=== PATIENT | female | born 1950 | race Caucasian/White ===

== ENCOUNTER 2021-09-01 09:51 | Inpatient (IN) | payer BC ==
[~2021-09-01] VITALS: Ht 165.1 cm; Wt 72.9 kg
--- NOTE | 2021-09-01 10:20 | PHYS DOC ---
Past Medical History Past Surgical History: No Surgical History Smoking Status: Former Smoker Alcohol Use: None General Adult EDM: Chief Complaint: CHEST PAIN HPI: HPI: Patient is a 70 year old male who presents with report of chest pain. She reports that she was lying in bed all week last week, not feeling well. She reports that 3 days ago she began experiencing some chest pain, mostly with exertion, but she also reports that it felt worse when she moved her arms. She reports that currently she feels much better, and only has a "twinge" of chest discomfort. She denies any dyspnea. She denies dizziness or diaphoresis. She denies nausea vomiting abdominal pain, lower extremity pain or swelling. Denies syncope or near syncope. She denies cough or hemoptysis. She denies fevers or chills. She denies any previous similar symptoms. She went to her primary care physician office this morning, they performed an EKG, give her 324 mg of oral aspirin, and told her to come to the ER. She denies any history of known coronary disease, no previous history of chest pain symptoms. Then cardiology nurse practitioner took the liberty of seeing the patient in the ER before I was able to see her. He reportedly staffed patient with his attending, Dr. Valiente. Review of Systems: Review of Systems: Constitutional: Denies fever or chills. [] HENT: Denies nasal congestion or sore throat. [] Respiratory: Denies cough or shortness of breath. [] Cardiovascular: Chest pain. Denies syncope, denies peripheral edema Musculoskeletal: Denies back pain or joint pain. [] Integument: Denies rash. [] Neurologic: Denies headache, focal weakness or sensory changes. Denies dizziness or syncope. Psychiatric: Denies depression or anxiety. [] Heart Score: C/O Chest Pain: Yes HEART Score for Chest Pain: HEART Score for Chest Pain Response (Comments) Value History Moderately Suspicious 1 ECG Nonspecific Repolarizatio 1 Age > 65 2 Risk Factors 1 or 2 Risk Factors 1 Troponin >3 x Normal Limit 2 Total 7 Risk Factors: Risk Factors: DM, Current or recent (<one month) smoker, HTN, HLP, family history of CAD, obesity. Risk Scores: Score 0 - 3: 2.5% MACE over next 6 weeks - Discharge Home Score 4 - 6: 20.3% MACE over next 6 weeks - Admit for Clinical Observation Score 7 - 10: 72.7% MACE over next 6 weeks - Early Invasive Strategies Allergies: Allergies: Allergies Coded Allergies Type Severity Reaction Last Updated Verified gabapentin Allergy Intermediate 09/01/21 Yes Physical Exam: PE: Constitutional: Well developed, well nourished, no acute distress, non-toxic appearance. [] HENT: Normocephalic, atraumatic Eyes: Conjunctive are clear, sclera anicteric Neck: Achy midline, no JVD, no meningism Cardiovascular:Heart rate regular rhythm, was 2 radial and +2 posterior tibial pulses bilateral Lungs & Thorax: Lungs are clear to auscultation without rales, rhonchi, wheezes, stridor, no evidence of distress, no tachypnea, no retractions, no cyanosis Abdomen: Abdomen is soft, nondistended, nontender to palpation. No palpable mass organomegaly Skin: Warm, dry, no erythema, no rash. [] Back: No tenderness, full range of motion Extremities: No tenderness, no cyanosis, no clubbing, ROM intact, no edema. No calf tenderness. Neurologic: Alert and oriented X 3, normal motor function, normal sensory function, no focal deficits noted. [] Psychologic: She is somewhat anxious, she is cooperative Current Patient Data: Vital Signs: Vital Signs Date Time Temp Pulse Resp B/P (MAP) Pulse Ox O2 Delivery O2 Flow Rate FiO2 09/01/21 10:01 97.9 75 15 138/85 (102) 96 Room Air 97.9 EKG: EKG: EKG is interpreted at 1000 Rhythm is sinus Rate is 84 bpm Bude is left Q waves V1, V2 No STEMI Radiology/Procedures: Radiology/Procedures: IMAGING REPORT Signed PATIENT: KITTY HANYE ACCOUNT: [id number] : 1950 LOCATION: ER AGE: 70 SEX: F EXAM STATUS: PRE ER ORD. PHYSICIAN: GALINA JANE DO REASON: chest pain PROCEDURE: PORTABLE CHEST 1V XR CHEST 1V History: Chest pain Comparison: None. Technique: AP radiograph of the chest. Findings: The lungs are adequately and symmetrically inflated. No airspace consolidation, pleural effusion or pneumothorax. The cardiomediastinal silhouette and pulmonary vasculature are within normal limits. Atherosclerotic calcifications of the aorta. Degenerative changes of the left greater than right shoulders. Impression: 1. No acute cardiopulmonary process. Electronically signed by: Jayant Gonzalez MD (09/01/2021 10:44 AM) [id number] DICTATED and SIGNED BY: JAYANT GONZALEZ MD DATE: 09/01/21 [id number] 0 Course & Med Decision Making: Course & Med Decision Making Pertinent Labs and Imaging studies reviewed. (See chart for details) Patient had already been given 324 mg of aspirin at her primary care physician's office. She reported only a "twinge" of chest pain. She was given 1 sublingual nitroglycerin. IV heparin drip ordered. She reported no pain at all thereafter. Vital signs are very stable. She is resting comfortably, manifest no evidence of distress. Initial troponin is 10,000. BNP is markedly elevated. No pulmonary edema on chest x-ray. She denies dyspnea, there is no evidence of respiratory distress or hypoxia. CT angio of the chest does not reveal any pulmonary embolus or other acute chest pathology. The patient will proceed to the cardiac [facility] this afternoon with Dr. Valiente. I have discussed all of the findings, differential diagnosis and plan of care with the patient. I explained the recommendation for hospitalization, she is comfortable with this plan. She is excepted for admission by Dr. Ac. Georgie Disclaimer: Georgie Disclaimer: This electronic medical record was generated, in whole or in part, using a voice recognition dictation system. Departure Departure Impression: Primary Impression: NSTEMI (non-ST elevated myocardial infarction) Disposition: ADMITTED INPATIENT Admitting Physician: PAT (Dr. Ac) Condition: GUARDED LUCINDA,GALINA Melvin DO Sep 01, 2021 10:20
[2021-09-01 10:43] LABS: BASO # 0.1 x10^3/uL (0.0-0.2); BASO % 0 % (0-3); EOS % 0 % (0-3); HEMATOCRIT 39.6 % (36.0-47.0); HEMOGLOBIN 13.3 g/dL (12.0-15.5); LYMPH # 1.8 x10^3/uL (1.0-4.8); LYMPH % 12 % (24-48); MEAN CORPUSCULAR HEMOGLOBIN 30 pg (25-35); MEAN CORPUSCULAR HGB CONC 34 g/dL (31-37); MEAN CORPUSCULAR VOLUME 88 fL (79-100); MONO # 1.2 x10^3/uL (0.0-1.1); MONO % 8 % (0-9); NEUT # 11.9 x10^3/uL (1.8-7.7); NEUT % 80 % (31-73); PLATELET COUNT 323 x10^3/uL (140-400); RED BLOOD COUNT 4.49 x10^6/uL (3.50-5.40); RED CELL DISTRIBUTION WIDTH 14.5 % (11.5-14.5); WHITE BLOOD COUNT 14.9 x10^3/uL (4.0-11.0)
--- NOTE | 2021-09-01 10:47 | RAD ---
XR CHEST 1V History: Chest pain Comparison: None. Technique: AP radiograph of the chest. Findings: The lungs are adequately and symmetrically inflated. No airspace consolidation, pleural effusion or p neumothorax. The cardiomediastinal silhouette and pulmonary vasculature are within normal limits. Ath erosclerotic calcifications of the aorta. Degenerative changes of the left greater than right shoulde rs. Impression: 1. No acute cardiopulmonary process. Electronically signed by: Jayant Palmer MD (09/01/2021 10:44 AM) [id number]
[2021-09-01] MEDS ORDERED: NITROGLYCERIN SUBLINGUAL 0.4 MG BOTTLE OF 25. SL PRN ×2 (11:00→14:30)
[2021-09-01 11:06] LABS: CALCIUM 8.7 mg/dL (8.5-10.1); CREATININE 1.3 mg/dL (0.6-1.0); GFR 40.5; POTASSIUM 3.5 mmol/L (3.5-5.1)
[2021-09-01 11:09] LABS: ALBUMIN 3.6 g/dL (3.4-5.0); ALBUMIN/GLOBULIN RATIO 0.9 (1.0-1.7); MAGNESIUM 2.2 mg/dL (1.8-2.4); TOTAL BILIRUBIN 0.5 mg/dL (0.2-1.0); TOTAL PROTEIN 7.8 g/dL (6.4-8.2)
[2021-09-01] MEDS ORDERED: IOHEXOL 350 MG/ML 100 ML VIAL. IV ONE (12:00)
[2021-09-01] MEDS ORDERED: CONTRAST GIVEN. MC PRN (12:15)
--- NOTE | 2021-09-01 12:29 | PDOC2 ---
[facility] AGU[facility] HOME CARE PHYSICAL THERAPIST 09/01/21 1229: CARDIAC CONSULT DATE OF CONSULT Date of Consult DATE: 09/01/21 TIME: 12:06 REASON FOR CONSULT Reason for Consult: Chest pain REFERRING PHYSICIAN Referring Physician: Ivett SOURCE Source: Chart review, Patient HISTORY OF PRESENT ILLNESS HISTORY OF PRESENT ILLNESS Anabelis a pleasant 70 yo female admitted for complains of chest pain. This started about 2 days ago and has been nagging her. Described it as sharp pain midchest and her arms hurts all the time blaming it on arthritis. Has had nausea in the last day but no vomiting. No diarrhea, fever or chills. She had covid19 vaccine x1 last year but did not complete her vaccine due to possible reaction a=on her first dose. No viral symptoms. PAST MEDICAL HISTORY Cardiovascular: HTN Pulmonary: No pertinent hx CENTRAL NERVOUS SYSTEM: Other (No petinent history) GI: No pertinent hx Heme/Onc: No pertinent hx Hepatobiliary: No pertinent hx Psych: No pertinent hx Musculoskeletal: Osteoarthritis Rheumatologic: No pertinent hx Infectious disease: Bacterial vaginosis ENT: No pertinent hx Renal/: Other (interstitial cystitis) Endocrine: No pertinent hx Dermatology: No pertinent hx PAST SURGICAL HISTORY Past Surgical History: No pertinent history FAMILY HISTORY Family History: Heart Disease SOCIAL HISTORY Smoke: Quit (remotely) ALCOHOL: none Drugs: None Lives: with Family ALLERGIES ALLERGIES: Coded Allergies: gabapentin (Verified Allergy, Intermediate, 09/01/21) ROS Review of System 14 point ROS evaluated with pertinent positives noted per HPI PHYSICAL EXAM General: Alert, Oriented X3, Cooperative, No acute distress HEENT: Atraumatic, Mucous membr. moist/pink Lungs: Clear to auscultation, Normal air movement Heart: Regular rate, Normal S1, Normal S2, No murmurs Abdomen: Soft, No tenderness Extremities: No cyanosis, No edema Skin: No breakdown Neuro: Normal speech, Sensation intact Psych/Mental Status: Mental status NL, Mood NL MUSCULOSKELETAL: Osteoarthritic changes both hands VITALS/I&O VITALS/I&O: Vital Signs Date Time Temp Pulse Resp B/P (MAP) Pulse Ox O2 Delivery O2 Flow Rate FiO2 09/01/21 10:01 97.9 75 15 138/85 (102) 96 Room Air 97.9 LABS Lab: Laboratory Tests Test 09/01/21 10:20 White Blood Count 14.9 x10^3/uL (4.0-11.0) H Red Blood Count 4.49 x10^6/uL (3.50-5.40) Hemoglobin 13.3 g/dL (12.0-15.5) Hematocrit 39.6 % (36.0-47.0) Mean Corpuscular Volume 88 fL (79-100) Mean Corpuscular Hemoglobin 30 pg (25-35) Mean Corpuscular Hemoglobin Concent 34 g/dL (31-37) Red Cell Distribution Width 14.5 % (11.5-14.5) Platelet Count 323 x10^3/uL (140-400) Neutrophils (%) (Auto) 80 % (31-73) H Lymphocytes (%) (Auto) 12 % (24-48) L Monocytes (%) (Auto) 8 % (0-9) Eosinophils (%) (Auto) 0 % (0-3) Basophils (%) (Auto) 0 % (0-3) Neutrophils # (Auto) 11.9 x10^3/uL (1.8-7.7) H Lymphocytes # (Auto) 1.8 x10^3/uL (1.0-4.8) Monocytes # (Auto) 1.2 x10^3/uL (0.0-1.1) H Eosinophils # (Auto) 0.0 x10^3/uL (0.0-0.7) Basophils # (Auto) 0.1 x10^3/uL (0.0-0.2) Sodium Level 125 mmol/L (136-145) L Potassium Level 3.5 mmol/L (3.5-5.1) Chloride Level 90 mmol/L (98-107) L Carbon Dioxide Level 23 mmol/L (21-32) Anion Gap 12 (6-14) Blood Urea Nitrogen 26 mg/dL (7-20) H Creatinine 1.3 mg/dL (0.6-1.0) H Estimated GFR (Cockcroft-Gault) 40.5 BUN/Creatinine Ratio 20 (6-20) Glucose Level 128 mg/dL (70-99) H Calcium Level 8.7 mg/dL (8.5-10.1) Magnesium Level 2.2 mg/dL (1.8-2.4) Total Bilirubin 0.5 mg/dL (0.2-1.0) Aspartate Amino Transferase (AST) 127 U/L (15-37) H Alanine Aminotransferase (ALT) 36 U/L (14-59) Alkaline Phosphatase 106 U/L (46-116) Troponin I High Sensitivity 17958 ng/L (4-50) H [id number]-I-Type Natriuretic Peptide 48286 pg/mL (0-124) H Total Protein 7.8 g/dL (6.4-8.2) Albumin 3.6 g/dL (3.4-5.0) Albumin/Globulin Ratio 0.9 (1.0-1.7) L Lipase 53 U/L (73-393) L Laboratory Tests 09/01/21 10:20 Laboratory Tests 09/01/21 10:20 ASSESSMENT/PLAN ASSESSMENT/PLAN 1. NSTEMI 2. HTN: controlled 3. Mild NATALIE with hyponatremia Recommendations 1. C with possible PCI 2. ASA, heparin drip 3. FLP, TTE CHARITO BURLESON MD 09/01/21 2141: CARDIAC CONSULT ASSESSMENT/PLAN ASSESSMENT/PLAN Patient seen and examined. Agree with HYBRID CAR MECHANIC's assessment and plan. Agree with cardiac cath and possible PCI for NSTEMI Continue heparin infusion per protocol Check 2D echo to assess LVF Thank you for your consultation ALVIN AGUILAR APRN Sep 01, 2021 12:29 CHARITO BURLESON MD Sep 01, 2021 21:41
[2021-09-01] MEDS ORDERED: HEPARIN 25,000UTS/250ML PREMIX 250 ML IV PRN ×2 (12:30→17:15)
[2021-09-01] MEDS ORDERED: IV NORMAL SALINE 1000ML BAG 1,000 ML IV ONE ×2 (12:30→13:30)
[2021-09-01] MEDS ORDERED: ASPIRIN ENTERIC COATED 325 MG TABLET.DR. PO ONE (12:30)
[2021-09-01] MEDS ORDERED: HEPARIN for IV BOLUS 10,000 UNIT/10 ML VIAL. IV PRN (12:30)
--- NOTE | 2021-09-01 12:59 | RAD ---
CTA CHEST History: Chest pain, elevated BNP and troponin. Rule out PE. Comparison: None. Technique: CTA of the pulmonary arteries with intravenous contrast. 3-D postprocessing was performed. Findings: Pulmonary arteries: No pulmonary embolism Aorta and great vessels: No aneurysm or dissection of the aortic arch or thoracic aorta. Thyroid: No significant abnormalities. Mediastinum and ed: No mediastinal masses or adenopathy is seen. Esophagus: The visualized esophagus is normal. Heart: The heart is normal in size. There is no pericardial effusion. Heavy coronary artery calcifica tion. Airways, Lungs, Pleura: Clear airways. No focal consolidation. Mild dependent changes in the lungs. Upper abdomen: Limited evaluation of the upper abdomen is unremarkable. Osseous structures and soft tissues: Degenerative changes of the bilateral shoulders. Mild degenerati ve changes in the thoracic spine. Impression: 1. No pulmonary embolism. ------ Exposure: One or more of the following individualized dose reduction techniques were utilized for thi s examination: 1. Automated exposure control 2. Adjustment of the mA and/or kV according to patient size 3. Use of iterative reconstruction technique. Electronically signed by: Jayant Palmer MD (09/01/2021 12:56 PM) [id number]
[2021-09-01 13:56] LABS: BILIRUBIN,URINE NEGATIVE (NEG); CLARITY,URINE CLEAR; COLOR,URINE STRAW; PROTEIN,URINE NEGATIVE (NEG-TRACE)
[2021-09-01 13:57] LABS: NITRITE,URINE NEGATIVE (NEG); UROBILINOGEN,URINE 0.2 mg/dL (0.2 mg/dL)
[2021-09-01 14:00] LABS: BACTERIA,URINE 0 /HPF (0-FEW); RBC,URINE 0 /HPF (0-2)
[2021-09-01] MEDS ORDERED: LIDOCAINE 1% PF 2 ML VIAL. ONE (14:26)
[2021-09-01] MEDS ORDERED: IODIXANOL 320 MG/ML 100 ML VIAL. ONE (14:26)
[2021-09-01] MEDS ORDERED: IV NORMAL SALINE 1000ML BAG 1,000 ML IV SCH (14:30)
[2021-09-01] MEDS ORDERED: ONDANSETRON PF 4 MG/2 ML VIAL. IVP PRN ×2 (14:30→15:15)
[2021-09-01] MEDS ORDERED: fentaNYL PF VIAL 100 MCG/2 ML VIAL ONE ×2 (15:11→15:49)
[2021-09-01] MEDS ORDERED: HEPARIN for IV BOLUS 10,000 UNIT/10 ML VIAL. ONE (15:12)
[2021-09-01] MEDS ORDERED: VERAPAMIL 5 MG/2 ML VIAL. ONE (15:12)
[2021-09-01] MEDS ORDERED: MIDAZOLAM HCL/PF 2 MG/2 ML VIAL. ONE ×2 (15:12→15:49)
[2021-09-01] MEDS ORDERED: NITROGLYCERIN 200 MCG/2 ML SYRINGE FOR CATH/VASC LAB. ONE (15:12)
--- NOTE | 2021-09-01 15:12 | PDOC1 ---
History and Physical Date of Service: DOS: DATE: 09/01/21 TIME: 15:08 Chief Complaint: Chief Complain: Chest pain History of Present Illness: HPI: History obtained from discussion with the ED physician and chart review: 70-year-old female presenting with atypical chest pain for the past 3 days. Patient describes sharp pain in the mid chest region and attributes to this to some of her arthritis. Endorses nausea without vomiting. Denies shortness of breath, palpitations, syncope, abdominal pain, diarrhea, blurry vision or loss of vision. In the ED, EKG showed to have septal T wave inversions and troponin was as high as 10,000. Past Medical/Surgical History: PMH/PSH: Past medical history of hypertension, osteoarthritis, bacterial vaginosis No past surgical history Allergies: Allergies: Coded Allergies: gabapentin (Verified Allergy, Intermediate, 09/01/21) Family History: Family History: Reviewed with relative history of heart disease Social History: Social History: Former smoker, denies any alcohol or drug abuse Current Medications: Current Medications Current Medications Nitroglycerin (Nitrostat) 0.4 mg PRN Q5MIN PRN SL CHEST PAIN Last administered on 09/01/21at 13:06; Start 09/01/21 at 11:00 Iohexol (Omnipaque 350 Mg/ml) 85 ml 1X ONCE IV Last administered on 09/01/21at 12:00; Start 09/01/21 at 12:00; Stop 09/01/21 at 12:01; Status DC Info (CONTRAST GIVEN -- Rx MONITORING) 1 each PRN DAILY PRN MC SEE COMMENTS; Start 09/01/21 at 12:15; Stop 09/03/21 at 12:14 Heparin Sodium/ Dextrose 250 ml @ 8.748 mls/ hr CONT PRN IV PER PROTOCOL Last administered on 09/01/21at 13:02; Start 09/01/21 at 12:30 Heparin Sodium (Porcine) (Heparin Sodium) 1,800 unit PRN Q6HRS PRN IV FOR UFH LEVEL LESS THAN 0.2 Last administered on 09/01/21at 13:03; Start 09/01/21 at 12:30 Sodium Chloride 1,000 ml @ 100 mls/hr 1X ONCE IV Last administered on 09/01/21at 12:30; Start 09/01/21 at 12:30; Stop 09/01/21 at 22:29 Aspirin (Ecotrin) 325 mg 1X ONCE PO ; Start 09/01/21 at 12:30; Stop 09/01/21 at 12:31; Status DC Aspirin (Ecotrin) 81 mg [id number] PO ; Start 09/02/21 at 08:00 Sodium Chloride 1,000 ml @ 75 mls/hr 1X ONCE IV ; Start 09/01/21 at 13:30; Stop 09/02/21 at 02:49 Ondansetron HCl (Zofran) 4 mg PRN Q8HRS PRN IVP NAUSEA/VOMITING; Start 09/01/21 at 14:30; Stop 09/02/21 at 14:29 Nitroglycerin (Nitrostat) 0.4 mg PRN Q5MIN PRN SL CHEST PAIN; Start 09/01/21 at 14:30 Sodium Chloride 1,000 ml @ 75 mls/hr [id number] IV ; Start 09/01/21 at 14:30 Iodixanol (Visipaque 320) 100 ml STK-MED ONCE .ROUTE ; Start 09/01/21 at 14:26; Stop 09/01/21 at 14:27; Status DC Lidocaine HCl (Xylocaine-Mpf 1% 2ml Vial) 2 ml STK-MED ONCE .ROUTE ; Start 09/01/21 at 14:26; Stop 09/01/21 at 14:27; Status DC Heparin Sodium/ Sodium Chloride 1,000 ml @ As Directed STK-MED ONCE .ROUTE ; Start 09/01/21 at 14:27; Stop 09/01/21 at 14:27; Status DC ROS: Review of Systems Review of System REVIEW OF SYSTEMS: GENERAL: Denies weakness SKIN: No bruising, hair changes or rashes. EYES: No blurred, double or loss of vision. NOSE AND THROAT: No history of nosebleeds, hoarseness or sore throat. HEART: Positive for chest pain LUNGS: Denies cough, hemoptysis, wheezing or shortness of breath. GASTROINTESTINAL: Denies changes in appetite, nausea, vomiting, diarrhea or constipation. GENITOURINARY: No history of frequency, urgency, hesitancy or nocturia. NEUROLOGIC: Denies history of numbness, tingling, or tremor. PSYCHIATRIC: No history of panic, anxiety or depression. ENDOCRINE: No history of heat or cold intolerance, polyuria or polydipsia. EXTREMITIES: Denies joint pain, pain on walking or stiffness. Physical Exam: Vital Signs: Vital Signs Date Time Temp Pulse Resp B/P (MAP) Pulse Ox O2 Delivery O2 Flow Rate FiO2 09/01/21 13:06 85 150/90 09/01/21 12:28 17 99 Room Air 09/01/21 10:01 97.9 97.9 Physcial Exam: General: Well developed, well nourished, no acute distress, well appearing HEENT: Pupils equally round and reactive to light, EOMI, no discharge, normal conjunctiva Neck: Supple, no nuchal rigidity, no JVD, trachea midline, no tenderness Cardiac: RRR, no murmurs, no gallops, no rubs Chest/Lungs: CTAB, no wheeze, no rhonchi, no crackles Abdomen: soft, non-distended, no guarding, no peritoneal signs, non-tender Back: No tenderness Extremities: no edema, pulses intact, non-tender,capillary refill <3 sec bilateral upper and lower extremities, Neuro: Alert and oriented x 4, no focal deficits, normal speech Labs: Labs: Laboratory Tests Test 09/01/21 10:20 09/01/21 13:25 09/01/21 13:45 White Blood Count 14.9 x10^3/uL (4.0-11.0) Red Blood Count 4.49 x10^6/uL (3.50-5.40) Hemoglobin 13.3 g/dL (12.0-15.5) Hematocrit 39.6 % (36.0-47.0) Mean Corpuscular Volume 88 fL (79-100) Mean Corpuscular Hemoglobin 30 pg (25-35) Mean Corpuscular Hemoglobin Concent 34 g/dL (31-37) Red Cell Distribution Width 14.5 % (11.5-14.5) Platelet Count 323 x10^3/uL (140-400) Neutrophils (%) (Auto) 80 % (31-73) Lymphocytes (%) (Auto) 12 % (24-48) Monocytes (%) (Auto) 8 % (0-9) Eosinophils (%) (Auto) 0 % (0-3) Basophils (%) (Auto) 0 % (0-3) Neutrophils # (Auto) 11.9 x10^3/uL (1.8-7.7) Lymphocytes # (Auto) 1.8 x10^3/uL (1.0-4.8) Monocytes # (Auto) 1.2 x10^3/uL (0.0-1.1) Eosinophils # (Auto) 0.0 x10^3/uL (0.0-0.7) Basophils # (Auto) 0.1 x10^3/uL (0.0-0.2) Sodium Level 125 mmol/L (136-145) Potassium Level 3.5 mmol/L (3.5-5.1) Chloride Level 90 mmol/L (98-107) Carbon Dioxide Level 23 mmol/L (21-32) Anion Gap 12 (6-14) Blood Urea Nitrogen 26 mg/dL (7-20) Creatinine 1.3 mg/dL (0.6-1.0) Estimated GFR (Cockcroft-Gault) 40.5 BUN/Creatinine Ratio 20 (6-20) Glucose Level 128 mg/dL (70-99) Calcium Level 8.7 mg/dL (8.5-10.1) Magnesium Level 2.2 mg/dL (1.8-2.4) Total Bilirubin 0.5 mg/dL (0.2-1.0) Aspartate Amino Transf (AST/SGOT) 127 U/L (15-37) Alanine Aminotransferase (ALT/SGPT) 36 U/L (14-59) Alkaline Phosphatase 106 U/L (46-116) Troponin I High Sensitivity 69139 ng/L (4-50) 84596 ng/L (4-50) GG-Okb-R-Type Natriuretic Peptide 45679 pg/mL (0-124) Total Protein 7.8 g/dL (6.4-8.2) Albumin 3.6 g/dL (3.4-5.0) Albumin/Globulin Ratio 0.9 (1.0-1.7) Lipase 53 U/L (73-393) SARS-CoV-2 Antigen (Rapid) Negative (NEGATIVE) Urine Collection Type Unknown Urine Color Straw Urine Clarity Clear Urine pH 7.0 (<5.0-8.0) Urine Specific [place] 1.010 (1.000-1.030) Urine Protein Negative mg/dL (NEG-TRACE) Urine Glucose (UA) Negative mg/dL (NEG) Urine Ketones (Stick) Negative mg/dL (NEG) Urine Blood Trace (NEG) Urine Nitrite Negative (NEG) Urine Bilirubin Negative (NEG) Urine Urobilinogen Dipstick 0.2 mg/dL (0.2 mg/dL) Urine Leukocyte Esterase Negative (NEG) Urine RBC 0 /HPF (0-2) Urine WBC 1-4 /HPF (0-4) Urine Squamous Epithelial Cells Occ /LPF Urine Bacteria 0 /HPF (0-FEW) Laboratory Tests Test 09/01/21 10:20 09/01/21 13:25 09/01/21 13:45 White Blood Count 14.9 x10^3/uL (4.0-11.0) Red Blood Count 4.49 x10^6/uL (3.50-5.40) Hemoglobin 13.3 g/dL (12.0-15.5) Hematocrit 39.6 % (36.0-47.0) Mean Corpuscular Volume 88 fL (79-100) Mean Corpuscular Hemoglobin 30 pg (25-35) Mean Corpuscular Hemoglobin Concent 34 g/dL (31-37) Red Cell Distribution Width 14.5 % (11.5-14.5) Platelet Count 323 x10^3/uL (140-400) Neutrophils (%) (Auto) 80 % (31-73) Lymphocytes (%) (Auto) 12 % (24-48) Monocytes (%) (Auto) 8 % (0-9) Eosinophils (%) (Auto) 0 % (0-3) Basophils (%) (Auto) 0 % (0-3) Neutrophils # (Auto) 11.9 x10^3/uL (1.8-7.7) Lymphocytes # (Auto) 1.8 x10^3/uL (1.0-4.8) Monocytes # (Auto) 1.2 x10^3/uL (0.0-1.1) Eosinophils # (Auto) 0.0 x10^3/uL (0.0-0.7) Basophils # (Auto) 0.1 x10^3/uL (0.0-0.2) Sodium Level 125 mmol/L (136-145) Potassium Level 3.5 mmol/L (3.5-5.1) Chloride Level 90 mmol/L (98-107) Carbon Dioxide Level 23 mmol/L (21-32) Anion Gap 12 (6-14) Blood Urea Nitrogen 26 mg/dL (7-20) Creatinine 1.3 mg/dL (0.6-1.0) Estimated GFR (Cockcroft-Gault) 40.5 BUN/Creatinine Ratio 20 (6-20) Glucose Level 128 mg/dL (70-99) Calcium Level 8.7 mg/dL (8.5-10.1) Magnesium Level 2.2 mg/dL (1.8-2.4) Total Bilirubin 0.5 mg/dL (0.2-1.0) Aspartate Amino Transf (AST/SGOT) 127 U/L (15-37) Alanine Aminotransferase (ALT/SGPT) 36 U/L (14-59) Alkaline Phosphatase 106 U/L (46-116) Troponin I High Sensitivity 79940 ng/L (4-50) 37200 ng/L (4-50) JO-Tlf-Y-Type Natriuretic Peptide 75602 pg/mL (0-124) Total Protein 7.8 g/dL (6.4-8.2) Albumin 3.6 g/dL (3.4-5.0) Albumin/Globulin Ratio 0.9 (1.0-1.7) Lipase 53 U/L (73-393) SARS-CoV-2 Antigen (Rapid) Negative (NEGATIVE) Urine Collection Type Unknown Urine Color Straw Urine Clarity Clear Urine pH 7.0 (<5.0-8.0) Urine Specific [place] 1.010 (1.000-1.030) Urine Protein Negative mg/dL (NEG-TRACE) Urine Glucose (UA) Negative mg/dL (NEG) Urine Ketones (Stick) Negative mg/dL (NEG) Urine Blood Trace (NEG) Urine Nitrite Negative (NEG) Urine Bilirubin Negative (NEG) Urine Urobilinogen Dipstick 0.2 mg/dL (0.2 mg/dL) Urine Leukocyte Esterase Negative (NEG) Urine RBC 0 /HPF (0-2) Urine WBC 1-4 /HPF (0-4) Urine Squamous Epithelial Cells Occ /LPF Urine Bacteria 0 /HPF (0-FEW) Images: Images PROCEDURE: PORTABLE CHEST 1V XR CHEST 1V History: Chest pain Comparison: None. Technique: AP radiograph of the chest. Findings: The lungs are adequately and symmetrically inflated. No airspace consolidation, pleural effusion or pneumothorax. The cardiomediastinal silhouette and pulmonary vasculature are within normal limits. Atherosclerotic calcifications of the aorta. Degenerative changes of the left greater than right shoulders. Impression: 1. No acute cardiopulmonary process. PROCEDURE: CT ANGIOGRAPHY CHEST CTA CHEST History: Chest pain, elevated BNP and troponin. Rule out PE. Comparison: None. Technique: CTA of the pulmonary arteries with intravenous contrast. 3-D postprocessing was performed. Findings: Pulmonary arteries: No pulmonary embolism Aorta and great vessels: No aneurysm or dissection of the aortic arch or thoracic aorta. Thyroid: No significant abnormalities. Mediastinum and ed: No mediastinal masses or adenopathy is seen. Esophagus: The visualized esophagus is normal. Heart: The heart is normal in size. There is no pericardial effusion. Heavy c oronary artery calcification. Airways, Lungs, Pleura: Clear airways. No focal consolidation. Mild dependent changes in the lungs. Upper abdomen: Limited evaluation of the upper abdomen is unremarkable. Osseous structures and soft tissues: Degenerative changes of the bilateral shoulders. Mild degenerative changes in the thoracic spine. Impression: 1. No pulmonary embolism. Assessment/Plan Assessment/Plan Acute chest pain, rule out ACS Concern for non-STEMI Elevated BNP suggestive of volume overload Acute electrolyte derangementhyponatremia, hypochloremia suggestive of volume depletion NATALIE due to vasomotor nephropathy History of hypertension Admit to hospitalist service for further management EKG showing septal T wave inversions Troponin at 10,000 and 14,000 rising Continue aspirin, consider Plavix if intermediate risk will defer this to cardiology Cardiology consulted for left heart cath today Continue nitroglycerin as needed for pain Continue beta-eduarda if blood pressures allow Continue high intensity statins IV morphine as needed Start Heparin gtt Maintain O2 sats between 88 to 95% Trend troponins Repeat EKG in the a.m. Continue telemetry monitoring Monitor for electrolyte abnormalities Avoid NSAIDs In addition to my E/M visit, advance care planning done with A total time of 20 minutes was spent from 330 to 350 face to face in discussion regarding the patient's goals of care, CODE STATUS. Justifications for Admission Other Justification DARIUSZ BEAN MD Sep 01, 2021 15:12
[2021-09-01] MEDS ORDERED: PROCHLORPERAZINE 10 MG/2 ML VIAL. IV PRN (15:15)
[2021-09-01] MEDS ORDERED: ZOLPIDEM 5 MG TABLET. PO PRN (15:15)
[2021-09-01] MEDS ORDERED: diphenhydrAMINE 50 MG/ML VIAL IVP PRN (15:15)
[2021-09-01] MEDS ORDERED: DOCUSATE SODIUM 100 MG CAPSULE. PO PRN (15:15)
[2021-09-01] MEDS ORDERED: LORazepam 0.5 MG TABLET PO PRN (15:15)
[2021-09-01] MEDS ORDERED: MORPHINE SULFATE 2 MG/ML INJ. IV PRN (15:15)
[2021-09-01] MEDS ORDERED: DEXTROSE 50% 25 GM / 50ML DISP.SYRIN. IV PRN (15:15)
[2021-09-01] MEDS ORDERED: ACETAMINOPHEN 325 MG TABLET. PO PRN (15:15)
[2021-09-01] MEDS ORDERED: SENNOSIDES 8.6 MG TABLET PO PRN (15:15)
[2021-09-01] MEDS ORDERED: MORPHINE SULFATE 2 MG/ML INJ. IVP PRN (15:15)
[2021-09-01] MEDS ORDERED: diphenhydrAMINE HCL 25 MG CAPSULE PO PRN ×2 (15:15)
[2021-09-01] MEDS ORDERED: oxyCODONE/APAP 5/325 1 TAB TABLET PO PRN (15:15)
[2021-09-01] MEDS ORDERED: LIDOCAINE 1% Multi-Dose 20 ML VIAL. ONE (16:04)
[2021-09-01 16:28] VITALS: BP 101/65
[2021-09-01 17:00] VITALS: BP 91/39
--- NOTE | 2021-09-01 17:08 | NUR ---
Patient transferred from Regional Office Coordinator to ICU. IABP placed in R groin, TR band w/ 11ml air on R wrist. No bleeding at time of transfer. Dopamine gtt at 20 mcg/kg/min, Heparin at 12 U/kg/hr, NS bolus infusing. Order received to start Levophed gtt if Aug pressure <90. Report given to Axel KNOWLES in ICU. Patient's at bedside. Patient awaiting transfer to [facility] for CABG.
[2021-09-01 17:12] VITALS: BP 96/54
[2021-09-01] MEDS ORDERED: NITROGLYCERIN 200 MCG/2 ML SYRINGE FOR CATH/VASC LAB. IART ONE (17:15)
[2021-09-01] MEDS ORDERED: HEPARIN for IV BOLUS 10,000 UNIT/10 ML VIAL. IART ONE (17:15)
[2021-09-01] MEDS ORDERED: IODIXANOL 320 MG/ML 100 ML VIAL. IART ONE (17:15)
[2021-09-01] MEDS ORDERED: MIDAZOLAM HCL/PF 2 MG/2 ML VIAL. IV ONE (17:15)
[2021-09-01] MEDS ORDERED: LIDOCAINE 1% PF 2 ML VIAL. INJ ONE (17:15)
[2021-09-01] MEDS ORDERED: fentaNYL PF VIAL 100 MCG/2 ML VIAL IV ONE (17:15)
[2021-09-01] MEDS ORDERED: LIDOCAINE 1% Multi-Dose 20 ML VIAL. INJ ONE (17:15)
[2021-09-01] MEDS ORDERED: NOREPINEPHRINE VIAL 8 MG in IV DEXTROSE 5% 250 ML IV PRN (17:15)
[2021-09-01] MEDS ORDERED: VERAPAMIL 5 MG/2 ML VIAL. IART ONE (17:15)
[2021-09-01] MEDS ORDERED: EPINEPHrine 1 MG/ML VIAL ONE (17:29)
[2021-09-01] MEDS ORDERED: POLYVINYL ALCOHOL 1.4% OPHTH SOLUTION 15ML BOTTLE. OU PRN (18:00)
[2021-09-01] MEDS ORDERED: EPINEPHrine VIAL 5 MG in IV NORMAL SALINE 250ML 250 ML IV PRN (18:00)
[2021-09-01] MEDS ORDERED: IV NORMAL SALINE 500ML BAG 500 ML IV PRN (18:00)
[2021-09-01] MEDS ORDERED: EPINEPHrine 1 MG/ML VIAL INJ ONE (18:00)
[2021-09-01] MEDS ORDERED: MIDAZOLAM 100mg/100ml NS BAG 100 ML IV PRN (18:00)
[2021-09-01] MEDS ORDERED: ATROPINE 0.5 MG/5 ML DISP.SYRINGE. IV PRN (18:00)
[2021-09-01] MEDS ORDERED: DEXMEDETOMIDINE 400 MCG in IV NORMAL SALINE 100ML 96 ML IV PRN (18:00)
[2021-09-01] MEDS ORDERED: PROPOFOL 100 ML IV PRN (18:00)
[2021-09-01] MEDS ORDERED: PHENYLEPHRINE INJ 50 MG in IV NS 250 ML IV PRN (18:00)
[2021-09-01] MEDS ORDERED: MIDAZOLAM HCL/PF 5 MG/5 ML VIAL. IVP PRN (18:00)
[2021-09-01] MEDS ORDERED: VECURONIUM BOLUS 10 MG VIAL. IV PRN (18:00)
[2021-09-01] MEDS ORDERED: VASOPRESSIN - VASOSTRICT 20 UNIT in IV DEXTROSE 5% 100ML 100 ML IV PRN (18:30)
--- NOTE | 2021-09-01 19:04 | NUR ---
Patient arrived to unit at 1655 from labor representative with IABP in place to R femoral artery. Patient awake and alert x4. arrived at bedside and attempting to comfort patient. Patient slightly agitated and nauseous at time of admission. Patients IABP augmentation was 120 upon arrival with assisted BP of 90/39 with a mean of 76. Patient on Dopamine and Heparin at time of arrival. IABP augmentation <90 at 1715 and Levophed was started at 0.1 mcg/kg/min as well as a 500 cc fluid bolus. At 1725 BP continued to decline and levophed was increased to 0.2 mcg/kg/min. At 1730 patients assisted BP was 40/20 and Levophed was increased to 1.0 mcg/kg/min and 1 mg epinephrine given IVP. Patients assisted BP immediately elevated with a MAP in the low 120's. Augmented pressure at this time was 180. Levophed was decreased to 0.8 at 1733. At 1736 patients BP began to decline steadily and Levophed was increased again to 1.0 mcg/kg/min and Epinepherine was ordered per Dr. Valiente who was notified via telephone. Epinepherine was started at 1739 at 0.1 mcg/kg/min. Patients BP at this time still low with MAP's in the upper 50's. At 1744 patients MAP now in the 40's and epinepherine was increased to max infusion rate of 0.7 mcg/kg/min. At 1750 pts MAP was 16 on a BP cuff and IABP MAP was in the 20's. Patients alertness started to wean in and out. Patient would grumble and sometimes make appropriate statements but breathing becoming more shallow and slower. At 1751 patient become unresponsive and code blue initiated. Refer to code blue sheet for events after. Dr. Root at bedside with at 182. agreed to stop interventions. Patient pronounced by Dr. Root at 182
[2021-09-01] MEDS ORDERED: ETOMIDATE 20 MG/10 ML VIAL. IV ONE (19:12)
[2021-09-01] MEDS ORDERED: SUCCINYLCHOLINE 200 MG/10 ML VIAL. ONE (19:12)
[2021-09-01] MEDS ORDERED: FAMOTIDINE 20 MG/2 ML VIAL IVP SCH (21:00)
[2021-09-01] MEDS ORDERED: CHLORHEXIDINE 0.12% 15 ML MOUTHWASH. MM SCH (21:00)
--- NOTE | 2021-09-01 21:40 | PHYS DOC ---
CODE REPORT CODE REPORT A PAUL JOYA was called to this patient's room just before 6 PM tonight. The patient had been admitted to the hospital service, she had been admitted for an non-ST elevation CA, had gone to the Sheet Metal Supervisor for evaluation of coronary artery disease. She was found to have multivessel coronary artery disease and was subsequently being arranged for transfer to [facility] for emergent CABG. I had actually admitted this patient earlier in the shift for the non-STEMI. The patient had a bit admitted in stable condition, left the emergency room going to the Sheet Metal Supervisor in stable condition and reportedly with no chest pain. Cardiac catheterization reportedly went well. The patient arrived to the ICU on dopamine drip. According to the ICU nurses, the patient was awake, alert, conversant and hemodynamically stable on arrival. While waiting for transfer, the patient became bradycardic and hypotensive, with apneic episodes and gurgling respirations. On my arrival, the patient is pale, gurgling respirations, not protecting her airway. She is being oxygenated and ventilated by bag valve mask. The nursing staff has been giving intermittent boluses of IV epinephrine. She is maxed out on multiple vasopressors. The patient was intubated shortly after my arrival in the ICU. Intubation procedure: The patient was preoxygenated as much as possible via [id number]. I was able to intubate her using direct laryngoscopy, utilizing a 3-0 Lazarus laryngoscope blade, and a 7.0 endotracheal tube. The patient was suctioned prior to endotracheal tube placement. Endotracheal tube placement occurred without difficulty. Bilateral breath sounds were heard, positive color change on telemetry, positive misting of the tube. There were no complications. Shortly after intubation, the patient went into PEA arrest. CPR was initiated. ACLS protocol was initiated and continued. Multiple doses of IV epinephrine, IV sodium bicarbonate, IV calcium were given. She has been ventilated and oxygenated via bagging. PEA and then asystole are noted on the quantitative analyst. Dr. Valiente was contacted. He recommended starting vasopressin. This was started. ACLS protocol was continued, appropriate medications were administered. Please see the ICU nursing notes for details of medications and dosing administered. Prolonged resuscitation efforts were continued, no ROSC was achieved. I explained the findings to the patient's . On exam, her pupils are fixed and dilated. No meaningful response, no spontaneous movement, no spontaneous respirations. No cardiac activity is auscultated on exam, she is pulseless on exam. Please see time nursing notes for declaration of time of . Patient's was brought to the bedside and findings were explained to him. Dr. Valiente was contacted, and I contacted Dr. Ac to let him know that the patient had . GALINA JANE DO Sep 01, 2021 21:40
--- NOTE | 2021-09-02 07:50 | EKG ---
[facility] [address] [place] [address] Test Date: 2021-09-01 Test Time: 09:57:36 Pat Name: KITTY HANEY Department: Room: Gender: F Remanufacturing Technician: : 1950 Requested By: GALINA JANE Order Number: [id number] Reading MD: Measurements Intervals Vona Rate: 84 P: 24 PA: 152 QRS: -67 QRSD: 132 T: 98 QT: 426 QTc: 507 Interpretive Statements SINUS RHYTHM LEFT ATRIAL ABNORMALITY ABNORMAL LEFT AXIS DEVIATION LEFT ANTERIOR FASCICULAR BLOCK NON SPECIFIC INTRAVENTRICULAR BLOCK QRS(T) CONTOUR ABNORMALITY CONSISTENT WITH ANTEROSEPTAL INFARCT AGE UNDETERMINED ABNORMAL ECG RI6.02 No previous ECG available for comparison
--- NOTE | 2021-09-02 07:59 | CARD ---
MR#: [id number] Date of Study: 09/01/2021 Ordering Physician: ALVIN AGUILAR, Referring Physician: ALVIN AGUILAR, Tech: RT Morgan(R)() APPROVED REPORT Technologist: Marylin Wayne RT(R)() Nurse: Kassi Lincoln RN Procedure(s) performed: 1. Left heart catheterization, selective coronary angiography and left ventr iculography via right transradial approach 2. Percutaneous intra-aortic balloon pump insertion FLOURO TIME: 4.9 MINUTES DOSE: 40.57 Gycm2 CONTRAST: 88 CC'S VISIPAQUE MODERATE SEDATION:54 MINUTES INDICATION The indication(s) include : Non-STEMI, cardiogenic shock. [facility] Clinical Frailty Scale [facility] Clinical Frailty Scale: Managing Well Heart Failure Heart Failure: No CASE TECHNIQUE IV conscious sedation was used throughout procedure with appropriate monitoring and was performed in the presence of a registered nurse who was an independent trained observer other than the physician p erforming the procedure. During this case, Fluoroscopy and low osmolar contrast were used for imaging . Specimen(s) Removed: No Estimated Blood loss: 15 cc's. PROCEDURE NARRATIVE After explaining the risks, benefits and alternative options, informed consent was obtained from heide ent. Patient was brought to the cardiac Reuse Technician and right wrist was prepped and draped in the usual fashion after confirming a positive modified Stewart's test. Arterial access was obtained in the [facility] t radial artery and a 6 Austrian sheath was inserted. 6 Austrian Justo catheter was used to perform bj ective angiography of the left and right coronary arteries. 6 Austrian pigtail catheter was used to pe rform left ventriculography. The following findings were noted: FINDINGS 1. Hemodynamics: Left ventricular end-diastolic pressure of 12 mmHg. No pullback gradient across th e aortic valve. 2. Left ventriculography: Normal left ventricle systolic function with ejection fraction estimated at 55%. No significant mitral regurgitation seen. 3. Coronary angiography: a. The left main coronary artery arose from the left sinus of Valsalva, gave rise to the left anteri or descending and left circumflex arteries and showed critical 95 to 99% stenosis in the distal segme nt. b. The left anterior descending artery showed 80% bifurcation stenosis involving the mid to distal s egment and the diagonal branch. c. The left circumflex artery was not well visualized due to critical left main stenosis but appeare d to be without any significant stenosis. d. The right coronary artery was a large and dominant vessel arising from the right sinus of Valsalv a that showed 80% proximal segment stenosis. The posterolateral branch showed 70% stenosis. Patient was hypotensive at the beginning of procedure probably due to cardiogenic shock. This improv ed significantly with intravenous fluids and dopamine infusion. Since patient had critical left main coronary artery stenosis, we decided to place intra-aortic balloon pump for hemodynamic support. 20 cc of 2% lidocaine was infiltrated into the skin and subcutaneous tissues of the previously prepped and draped right groin. Arterial access was obtained in the right common femoral artery and IABP she ath was inserted. Subsequently, an intra-aortic balloon pump was advanced under fluoroscopic guidanc e, positioned optimally under fluoroscopic guidance and was turned on at 1:1 setting. Patient is aug mented pressure was 120 mmHg at the end of procedure. She tolerated the procedure well. She will be monitored closely in the ICU and transfer as soon as possible for emergent coronary artery bypass mcnamara rgbanner. Conclusion 1. Severe three-vessel coronary artery disease including critical 95 to 99% left main coronary arter y stenosis 2. Normal left ventricle systolic function with ejection fraction estimated at 55% 3. Successful percutaneous insertion of intra-aortic balloon pump for hemodynamic support Recommendations Patient's case was discussed with CT surgery at [facility]. They accepted the patient for inpatient transfer as soon as possible for emergent coronary artery bypass surgery. Patient will be monitored very closely in ICU while waiting for the transfer. Continue heparin infu candelaria per protocol. Signed by : Peter Valiente, Electronically Approved : 09/02/2021 07:58:33
[2021-09-02] MEDS ORDERED: ASPIRIN ENTERIC COATED 81 MG TABLET.DR. PO SCH (08:00)
[2021-09-02] MEDS ORDERED: ENOXAPARIN 30 MG/0.3 ML SYRINGE. SQ SCH (09:00)
== END 2021-09-01 19:36 | DRG 270 ==
LOC: ER 09:51 → 6 SOUTH 13:10 → 1 WEST ICU 16:30
PROVIDERS: ADMIT Internal Medicine; ATTEND Internal Medicine
PROC: B2111ZZ Fluoroscopy of Multiple Coronary Arteries using Low Osmolar Contrast (ICD-10-PCS; principal; 2021-09-01)
PROC: 5A02210 Assistance with Cardiac Output using Balloon Pump, Continuous (ICD-10-PCS; 2021-09-01)
PROC: B2151ZZ Fluoroscopy of Left Heart using Low Osmolar Contrast (ICD-10-PCS; 2021-09-01)
PROC: 4A023N7 Measurement of Cardiac Sampling and Pressure, Left Heart, Percutaneous Approach (ICD-10-PCS; 2021-09-01)
PROC: 5A12012 Performance of Cardiac Output, Single, Manual (ICD-10-PCS; 2021-09-01)
PROC: 0BH17EZ Insertion of Endotracheal Airway into Trachea, Via Natural or Artificial Opening (ICD-10-PCS; 2021-09-01)
DX: I21.4 Non-ST elevation (NSTEMI) myocardial infarction (principal); N17.0 Acute kidney failure with tubular necrosis; E87.1 Hypo-osmolality and hyponatremia; E87.8 Other disorders of electrolyte and fluid balance, not elsewhere classified; I10 Essential (primary) hypertension; R79.89 Other specified abnormal findings of blood chemistry; M19.90 Unspecified osteoarthritis, unspecified site; Z20.822 Contact with and (suspected) exposure to COVID-19; I25.10 Atherosclerotic heart disease of native coronary artery without angina pectoris; Z87.891 Personal history of nicotine dependence; Z88.8 Allergy status to other drugs, medicaments and biological substances
CPT/HCPCS: 33967; 36415; 71045; 71275; 80053; 81001; 83690; 83735; 83880; 84443; 84484; 85025; 87426; 93005; 93458; 96361; 96365; 96376; 99152; 99153; C1894; J1265; J1644; J2250; J2370; J3010; J3490; J7030; J7050; J7060; Q9967; 99285-25; G0378